=== PATIENT | female | born 2000 | race Caucasian/White ===

== ENCOUNTER 2021-07-09 21:48 | Emergency (ER) | payer SELFPAY ==
[2021-07-09 22:56] LABS: Urine Blood Negative (Negative); Urine Glucose Negative (Negative); Urine Protein Negative (Negative); Urine Specific Gravity 1.015 (1.005-1.030)
[2021-07-09 23:06] LABS: Urine Specific Gravity/Preg 1.015 (1.005-1.030)
[2021-07-09] MEDS ORDERED: ONDANSETRON 4 MG/2 ML VIAL ONE (23:11)
[2021-07-09] MEDS ORDERED: NA CHLORIDE 0.9% 1,000 ML ONE (23:12)
[2021-07-09 23:14] LABS: Absolute Lymphocytes (CBC) 2.3 K/uL (0.7-4.9); Basophils % 0.2 % (0-1.3); Hematocrit 41.9 % (36.0-45.0); MPV 8.5 fL (7.6-11.3); RBC Red Blood Cell Count 4.86 M/uL (3.86-4.86)
[2021-07-09 23:19] LABS: Urine Bacteria 20-50 /HPF (<20); Urine RBC <5 /HPF (NONE SEEN)
[2021-07-09 23:27] LABS: Albumin 4.4 g/dL (3.4-5.0); Bilirubin Direct 0.1 mg/dL (0-0.2); Bilirubin Total 0.4 mg/dL (0.2-1.0); Potassium 3.1 mmol/L (3.5-5.1); Protein, Total 8.2 g/dL (6.4-8.2)
--- NOTE | 2021-07-10 01:05 | ER ---
Nurse's Notes [facility] Name: Hung Aguiar Age: 21 yrs Sex: Female : 2000 Arrival Date: 07/09/2021 Time: 22:16 Bed 4 Private MD: Diagnosis: Abdominal pain, unspecified;Vomiting, unspecified Presentation: 07/09 22:21 Chief complaint: Patient states: epigastric pain, vomiting, chills, dizziness since sj1 this morning. Coronavirus screen: Vaccine status: Patient reports being unvaccinated. Ebola Screen: Patient negative for fever greater than or equal to 101.5 degrees Fahrenheit, and additional compatible Ebola Virus Disease symptoms Patient denies exposure to infectious person. Patient denies travel to an Ebola-affected area in the 21 days before illness onset. No symptoms or risks identified at this time. Initial Sepsis Screen: Does the patient meet any 2 criteria? No. Patient's initial sepsis screen is negative. Does the patient have a suspected source of infection? No. Patient's initial sepsis screen is negative. Risk Assessment: Do you want to hurt yourself or someone else? Patient reports no desire to harm self or others. Onset of symptoms was July 09, 2021. 22:21 Method Of Arrival: Ambulatory [facility] 22:21 Acuity: NANCY 3 [facility] Triage Assessment: 22:27 General: Appears in no apparent distress. Pain: Complains of pain in abdomen. EENT: No 1 signs and/or symptoms were reported regarding the EENT system. Neuro: Reports dizziness. Cardiovascular: No deficits noted. Respiratory: No deficits noted. GI: Reports upper abdominal pain, vomiting. : No signs and/or symptoms were reported regarding the genitourinary system. Derm: No deficits noted. Musculoskeletal: No deficits noted. 22:29 General: Behavior is calm, cooperative, appropriate for age. 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 - Social history:: Smoking status: Patient denies any tobacco usage or history of. Patient/guardian denies using alcohol, street drugs. - Family history:: not pertinent. - Hospitalizations: : No recent hospitalization is reported. Screenin:28 Abuse screen: Denies threats or abuse. Denies injuries from another. Nutritional sj1 screening: No deficits noted. Tuberculosis screening: No symptoms or risk factors identified. Fall Risk None identified. Assessment: 22:57 GI: Abdomen is non-distended. df1 Vital Signs: 22:21 BP 125 / 88 LA Sitting (auto/reg); Pulse 78; Resp 16 S; Temp 97.8(O); Pulse Ox 100% on sj1 R/A; Weight 43.09 kg (R); Height 5 ft. 2 in. (157.48 cm); Pain 3/10; 07/10 00:08 BP 125 / 84; Pulse 68; Resp 18; Pulse Ox 100% on R/A; df1 07/09 22:21 Body Mass Index 17.38 (43.09 kg, 157.48 cm) 1 ED Course: 07/09 22:16 Patient arrived in ED. cf2 22:26 Triage completed. sj1 22:27 Arm band placed on right wrist. sj1 22:28 Patient has correct armband on for positive identification. sj1 22:29 Aftab Talavera MD is Attending Physician. rn 22:42 Leatha Morrell is Primary Nurse. df1 22:55 Basic Metabolic Panel Sent. df1 22:55 Urine Microscopic Only Sent. df1 22:55 Flu Sent. df1 22:55 CT Abd/Pelvis - IV Contrast Only Sent. df1 22:56 Basic Metabolic Panel Sent. df1 22:56 CBC with Diff Sent. df1 22:56 Hepatic Function Sent. df1 22:56 Lipase Sent. df1 22:56 Inserted saline lock: 20 gauge in left antecubital area, using aseptic technique. df1 07/10 00:00 CT Abd/Pelvis - IV Contrast Only In Process Unspecified. EDMS 01:15 No provider procedures requiring assistance completed. IV discontinued, intact. df1 Administered Medications: 07/09 22:56 Drug: Zofran (Ondansetron) 4 mg Route: IVP; Site: left antecubital; df1 07/10 00:23 Follow up: Response: No adverse reaction; Nausea is decreased df1 07/09 22:56 Drug: NS 0.9% 1000 ml Route: IV; Rate: 1000 ml; Site: left antecubital; df1 07/10 00:23 Follow up: IV Status: Completed infusion; IV Intake: 1000ml df1 Intake: 00:23 IV: 1000ml; Total: 1000ml. df1 Outcome: 01:04 Discharge ordered by . rn 01:15 Discharged to home ambulatory. df1 01:15 Condition: good 01:15 Discharge instructions given to patient, Instructed on discharge instructions, follow up and referral plans. Demonstrated understanding of instructions, follow-up care, medications, Prescriptions given X 1. 01:47 Patient left the ED. em Signatures: Dispatcher [employer] Gregory Saleem RN RN em Aftab Talavera MD MD rn Frazier, [place] 2 Leatha Morrell df1 Akilah Oro RN RN sj1 Corrections: (The following items were deleted from the chart) 07/09 23:03 22:55 CORONAVIRUS+MR.LAB.BRZ drawn and sent. df1 EDMS
--- NOTE | 2021-07-10 01:05 | EDPHYS ---
Physician Documentation [facility] Name: Hung Aguiar Age: 21 yrs Sex: Female : 2000 Arrival Date: 07/09/2021 Time: 22:16 Bed 4 Private MD: ED Physician Aftab Talavera HPI: 07/09 22:41 This 21 yrs old Female presents to ER via Ambulatory with complaints of rn Morning and abdominal pain. 22:41 The patient presents to the emergency department with nausea, vomiting, abdominal pain. rn Onset: The symptoms/episode began/occurred today. Possible causes: unknown. The symptoms are aggravated by nothing. The symptoms are alleviated by nothing. Associated signs and symptoms: Pertinent positives: abdominal pain, nausea, vomiting, Pertinent negatives: diarrhea, fever, GI bleeding. Severity of symptoms: At their worst the symptoms were mild in the emergency department the symptoms are unchanged. The patient has not experienced similar symptoms in the past. The patient has not recently seen a physician. Mother and patient report sudden onset of mid abdominal pain associated with 2 episodes of vomiting, nonbloody. No fever and no diarrhea. No known sick contacts. No chronic abdominal pain. No abdominal surgeries.. 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 - Social history:: Smoking status: Patient denies any tobacco usage or history of. Patient/guardian denies using alcohol, street drugs. - Family history:: not pertinent. - Hospitalizations: : No recent hospitalization is reported. ROS: 22:41 Constitutional: Negative for fever, chills, and weight loss, Eyes: Negative for injury, rn pain, redness, and discharge, Neck: Negative for injury, pain, and swelling, Cardiovascular: Negative for chest pain, palpitations, and edema, Respiratory: Negative for shortness of breath, cough, wheezing, and pleuritic chest pain, Abdomen/GI: Positive for abdominal pain/nausea/vomiting Back: Negative for injury and pain, : Negative for injury, bleeding, discharge, and swelling, MS/Extremity: Negative for injury and deformity, Skin: Negative for injury, rash, and discoloration, Neuro: Negative for headache, weakness, numbness, tingling, and seizure. Exam: 22:41 Constitutional: This is a well developed, well nourished patient who is awake, alert, rn and in no acute distress. Ambulatory to room in bathroom without assistance or distress Head/Face: Normocephalic, atraumatic. Eyes: Periorbital areas with no swelling, redness, or edema. ENT: Moist mucous membranes, no stridor Neck: Trachea midline, no thyromegaly or masses palpated, and no cervical lymphadenopathy. Supple, full range of motion without nuchal rigidity, or vertebral point tenderness. No Meningismus. Cardiovascular: Regular rate and rhythm. No pulse deficits. Respiratory: No increased work of breathing, no retractions or nasal flaring. Abdomen/GI: Soft, mild periumbilical tenderness without rebound or peritoneal signs. Nondistended. Skin: Warm, dry with normal turgor. Normal color with no rashes, no lesions, and no evidence of cellulitis. MS/ Extremity: Pulses equal, no cyanosis. Neurovascular intact. Full, normal range of motion. Equal circumference. Neuro: Awake and alert, GCS 15, oriented to person, place, time, and situation. Cranial nerves II-XII grossly intact. Motor strength 5/5 in all extremities. Sensory grossly intact. Cerebellar exam normal. Normal gait. Vital Signs: 22:21 BP 125 / 88 LA Sitting (auto/reg); Pulse 78; Resp 16 S; Temp 97.8(O); Pulse Ox 100% on sj1 R/A; Weight 43.09 kg (R); Height 5 ft. 2 in. (157.48 cm); Pain 3/; 07/10 00:08 BP 125 / 84; Pulse 68; Resp 18; Pulse Ox 100% on R/A; df1 07/09 22:21 Body Mass Index 17.38 (43.09 kg, 157.48 cm) [facility] MDM: 07/09 22:29 Patient medically screened. rn 07/10 01:01 Differential diagnosis: Nonspecific abd pain, gastritis, cholecystitis, pancreatitis, rn appendicitis, diverticulitis, viral gastroenteritis, gastroenteritis. Data reviewed: vital signs, nurses notes, lab test result(s), radiologic studies, CT scan, and as a result, I will discharge patient. Counseling: I had a detailed discussion with the patient and/or guardian regarding: the historical points, exam findings, and any diagnostic results supporting the discharge/admit diagnosis, lab results, radiology results, the need for outpatient follow up, to return to the emergency department if symptoms worsen or persist or if there are any questions or concerns that arise at home. Response to treatment: the patient's symptoms have markedly improved after treatment, the patient's condition has returned to base line, the patient is now symptom free, and as a result, I will discharge patient. Special discussion: Based on the patient's Hx, exam, and Dx evaluation, there is no indication for emergent surgery or inpatient Tx. It is understood by the patient/guardian that if the Sx's persist or worsen they need to return immediately for re-evaluation. I discussed with the patient/guardian in detail that at this point there is no indication for admission to the hospital. It is understood, however, that if the symptoms persist or worsen the patient needs to return immediately for re-evaluation. ED course: Patient feels much better, back to baseline, no longer vomiting, no abdominal pain. CT without any acute findings. There was some nonspecific periportal edema and discussed with patient's mother the need to observe her at home and return if anything worsens for repeat CAT scan. Her symptoms just began today and could progress at which point I would recommend returning for reevaluation. Will DC home with Zofran as needed. 07/09 22: Order name: Basic Metabolic Panel rn 07/09 22: Order name: CBC with Diff; Complete Time: 00: rn 07/09 22:41 Order name: Hepatic Function; Complete Time: 00: rn 07/09 22:41 Order name: Lipase; Complete Time: 00: rn 07/09 22:41 Order name: Flu; Complete Time: 00:23 rn 07/09 22:41 Order name: CT Abd/Pelvis - IV Contrast Only rn 07/09 22:41 Order name: Urine Microscopic Only; Complete Time: 00: rn 07/09 22:41 Order name: Basic Metabolic Panel; Complete Time: 00:23 EDMS 07/09 22:54 Order name: Urine Dipstick-Ancillary; Complete Time: 00:23 EDMS 07/09 23:03 Order name: SARS-COV-2 RT PCR; Complete Time: 00:23 EDMS 07/09 23:03 Order name: Urine --Ancillary (enter results); Complete Time: 00:23 tt3 07/09 23:19 Order name: Urine Culture EDRI 07/09 22:41 Order name: IV Saline Lock; Complete Time: 22:56 rn 07/09 22:41 Order name: Labs collected and sent; Complete Time: 22:56 rn 07/09 22:41 Order name: Urine Dipstick-Ancillary (obtain specimen); Complete Time: 22:55 rn 07/09 22:41 Order name: Urine Test (obtain specimen); Complete Time: 22:55 rn Administered Medications: 07/09 22:56 Drug: Zofran (Ondansetron) 4 mg Route: IVP; Site: left antecubital; df1 07/10 00:23 Follow up: Response: No adverse reaction; Nausea is decreased df1 07/09 22:56 Drug: NS 0.9% 1000 ml Route: IV; Rate: 1000 ml; Site: left antecubital; df1 07/10 00:23 Follow up: IV Status: Completed infusion; IV Intake: 1000ml df1 Disposition Summary: 07/10/21 01:04 Discharge Ordered Location: Home rn Problem: new rn Symptoms: have improved rn Condition: Stable rn Diagnosis - Abdominal pain, unspecified rn - Vomiting, unspecified rn Followup: rn - With: Private Physician - When: As needed - Reason: Recheck today's complaints, Re-evaluation by your physician Discharge Instructions: - Discharge Summary Sheet rn - Abdominal Pain, Adult rn - Nausea and Vomiting, Adult rn Forms: - Medication Reconciliation Form rn - Thank You Letter rn - Antibiotic corn popper - Prescription Opioid Use rn Prescriptions: - ondansetron 4 mg Oral tablet,disintegrating - place 1 tablet by TRANSLINGUAL route every 8 hours As needed; 20 tablet; rn Refills: 0, Product Selection Permitted Signatures: Dispatcher [employer] EDMS Aftab Talavera MD MD rn Furlich, Dawn df1 Akilah Oro RN RN sj1 Corrections: (The following items were deleted from the chart) 07/09 23:03 22:41 CORONAVIRUS+BRZ ordered. EDMS EDMS
[2021-07-10 02:20] VITALS: BP 125/84; O2SAT 100
[2021-07-10 02:21] VITALS: TEMP 97.8
--- NOTE | 2021-07-10 12:57 | RAD REPORT ---
EXAM DESCRIPTION: CT - Abdomen Pelvis W Contrast - 07/10/2021 6:15 am CLINICAL HISTORY: 21 years Female ABD PAIN TECHNIQUE: Axial CT imaging of the abdomen and pelvis was performed following the administration of intravenous contrast.. Oral contrast was not administered. Sagittal and coronal reconstructed image s were then performed. The CT study is performed according to ALARA (as low as reasonably achievabl e) or ALARA/IMAGE GENTLY, with automatic adjustment of mA and/or kV according to patient size. Performed on: 07/09/2021 at 11:57 PM. Comparison: No prior studies were available for comparison. FINDINGS: Lung bases: The lung bases are clear. Liver: The liver is normal in size and configuration. No focal hepatic abnormalities are identified. Liver attenuation is within normal limits. The hepatic and portal veins are patent. There is diffuse periportal edema which is nonspecific but can be seen with hypervolemia, passive hepatic congestion, hepatitis or other less likely etiologies. Spleen: The spleen is normal is size, configuration and attenuation. Gallbladder and bile duct: The gallbladder is well distended and unremarkable. There is no biliary ductal dilatation. Pancreas: The pancreas is grossly normal in size and configuration. Adrenal Glands: The adrenal glands are normal in size and configuration. Kidneys: The kidneys are normal in size and configuration. There is no evidence of hydronephrosis. Th ere is no evidence of nephrolithiasis. No definite solid or cystic renal mass lesions are identified. There is a circumaortic left renal vein. Stomach: The stomach is grossly normal. There is no definite hiatal hernia. Bowel: The bowel gas pattern is non specific and non obstructive. Appendix: There is no definite CT evidence to suggest acute appendicitis. Free air: There is no evidence of free air. Free fluid: There is no evidence of free fluid. Vasculature: The aorta is normal in caliber and contour. The inferior vena cava is grossly unremarkab le. Lymphadenopathy: No pathologic lymphadenopathy is identified. Bladder: The bladder is well distended and smooth in contour. Reproductive: The uterus is grossly within normal limits. Bones: No acute osseous abnormalities are identified. There appear to be chronic changes of the hip j oints with bilateral acetabular dysplasia and femoral head flattening. Soft tissues: No acute soft tissue abnormalities are identified. IMPRESSION: 1. There is diffuse periportal edema which is nonspecific but can be seen with hypervo lemia, passive hepatic congestion, hepatitis or other less likely etiologies. 2. Chronic changes of the hip joints with bilateral acetabular dysplasia and femoral head flattenin g. 3. Otherwise, no evidence of acute intra-abdominal or intrapelvic pathology. Electronically signed by: Trini Velázquez DO 07/10/2021 12:29 AM CDT Due to temporary technical issues with the PACS/Fluency reporting system, reports are being signed by the in house radiologist without review as a courtesy to ensure prompt reporting. The interpreting r adiologist is fully responsible for the content of the report.
== END 2021-07-10 01:47 | disposition home or self-care (01) ==
LOC: ER 21:48
DX: R11.10 Vomiting, unspecified (principal); F31.9 Bipolar disorder, unspecified; Z20.822 Contact with and (suspected) exposure to COVID-19
CPT/HCPCS: 36415; 74177; 80048; 80076; 81003; 81015; 81025; 83690; 85025; 87086; 87088; 87804; 96361; 96374; 99284; J2405; J7030; Q9967; U0003

== ENCOUNTER 2021-09-23 22:40 | Emergency (ER) | payer SELFPAY ==
--- OUTSIDE RECORDS SUMMARY | 2021-09-23 22:44 | XMS REPORT | Continuity of Care Document ---
:2000 Author Organization [facility] t Address [address] [place] [address] Care Team Providers Name Role Phone Mehnaz Malik Primary Care Physician [phone] Chiki MACKAY Attending Clinician Unavailable MISAEL Attending Clinician Unavailable Only, Db Test Attending Clinician Unavailable Misael WHYTE Attending Clinician Doctor Unassigned, Name Attending Clinician Unavailable CLAUDIA_Marlo Attending Clinician Unavailable Claudia Attending Clinician [phone] See WHYTE S Attending Clinician Aracelis Sakshi MICHELLE Attending Clinician Lab, Fam Pob I Attending Clinician Unavailable Avila Galvan Attending Clinician Avila ESTRADA Attending Clinician Unavailable Geovany ARMENTA Attending Clinician GEOVANY Attending Clinician Unavailable YAIMA Admitting Clinician Unavailable Payers Payer Name Policy Type Policy Number Effective Date Expiration Date S ource Advance Directives Directive Decision Effective Termination Comments Source Date Date Healthcare Agents on N/A [facility] FileNameRelationshipHealthcare [facility] Agent Medical [facility] [phone] (Mobile) Problems Condition Condition Condition Status Onset Resolution Last Treating Co mments Source Name Details Category Date Date Treatment Clinician Date Contracept Contracept Disease Active U nivers ion ion 3-28 [place] Irregular Irregular Disease Active Uni vers menstrual menstrual 3-28 ity of cycle cycle 00:00: [place] 00 [facility] Allergies, Adverse Reactions, Alerts Allergy Allergy Status Severity Reaction(s) Onset Inactive Treating Comm ents Source Name Type Date Date Clinician NO KNOWN Drug Active Univers ALLERGIE Class ity of S [facility] Social History Social Habit Start Date Stop Date Quantity Comments Source Exposure to Not sure [facility] SARS-CoV-2 [place] [facility] (event) Branch Alcohol intake 2020-12-27 2020-12-27 Current [facility] 00:00:00 00:00:00 non-drinker of [facility] alcohol [place] (finding) Tobacco use and 2017-12-21 2017-12-21 Never used Universit y of exposure 00:00:00 00:00:00 [facility] Sex Assigned At [birth year] Universit y of 00:00:00 00:00:00 [facility] Smoking Status Start Date Stop Date Source Never smoker [facility] Medications Ordered Filled Start Stop Current Ordering Indication Dosage Frequency Signature Comments Components Source Medication Medication Date Date Medication? Clinician (SIG) Name Name ketorolac 15mg 15 mg, Unive rs (TORADOL) 10-27 Slow IV ity of injection 04:45: 03:51 [place], [place] 15 mg 00 :00 ONCE, 1 Medical dose, [place] Branch 10/26/20 at 2245, WALLY
Fa culty member approving Restricted medication : [place] RABAGO ibuprofen Yes [id number] 400mg Take 1 Univers 400 mg 1-31 tablet by ity of tablet 00:00: mouth [place] 00 every 6 Medical (six) Branch hours as needed for Pain (scale 1-3). ibuprofen Yes [id number] 400mg Take 1 Univers 400 mg 1-31 tablet by ity of tablet 00:00: mouth [place] 00 every 6 Medical (six) Branch hours as needed for Pain (scale 1-3). ibuprofen Yes [id number] 400mg Take 1 Univers 400 mg 1-31 tablet by ity of tablet 00:00: mouth [place] 00 every 6 Medical (six) Branch hours as needed for Pain (scale 1-3). ibuprofen Yes [id number] 400mg Take 1 Univers 400 mg 1-31 tablet by ity of tablet 00:00: mouth [place] 00 every 6 Medical (six) Branch hours as needed for Pain (scale 1-3). ibuprofen 2020-0 Yes [id number] 400mg Take 1 Univers 400 mg 1-31 tablet by ity of tablet 00:00: mouth [place] 00 every 6 Medical (six) Branch hours as needed for Pain (scale 1-3). ibuprofen 0 Yes [id number] 400mg Take 1 Univers 400 mg 1-31 tablet by ity of tablet 00:00: mouth [place] 00 every 6 Medical (six) Branch hours as needed for Pain (scale 1-3). ibuprofen 0 Yes [id number] 400mg Take 1 Univers 400 mg 1-31 tablet by ity of tablet 00:00: mouth [place] 00 every 6 Medical (six) Branch hours as needed for Pain (scale 1-3). ibuprofen 0 Yes [id number] 400mg Take 1 Univers 400 mg 1-31 tablet by ity of tablet 00:00: mouth [place] 00 every 6 Medical (six) Branch hours as needed for Pain (scale 1-3). levonorgest Yes [id number] 1{tbl} Take 1 Univers rel-ethinyl 6-28 tablet by ity of estradiol 00:00: mouth [place] (SRONYX) 00 daily. Medical 0.1-20 Branch mg-mcg per tablet levonorgest Yes [id number] 1{tbl} Take 1 Univers rel-ethinyl 6-28 tablet by ity of estradiol 00:00: mouth [place] (SRONYX) 00 daily. Medical 0.1-20 Branch mg-mcg per tablet levonorgest Yes [id number] 1{tbl} Take 1 Univers rel-ethinyl 6-28 tablet by ity of estradiol 00:00: mouth [place] (SRONYX) 00 daily. Medical 0.1-20 Branch mg-mcg per tablet levonorgest 2017- Yes [id number] 1{tbl} Take 1 Univers rel-ethinyl 6-28 tablet by ity of estradiol 00:00: mouth [place] (SRONYX) 00 daily. Medical 0.1-20 Branch mg-mcg per tablet levonorgest 2017- Yes [id number] 1{tbl} Take 1 Univers rel-ethinyl 6-28 tablet by ity of estradiol 00:00: mouth [place] (SRONYX) 00 daily. Medical 0.1-20 Branch mg-mcg per tablet levonorgest 2018-0 Yes [id number] 1{tbl} Take 1 Univers rel-ethinyl 6-28 tablet by ity of estradiol 00:00: mouth [place] (SRONYX) 00 daily. Medical 0.1-20 Branch mg-mcg per tablet levonorgest 2018-0 Yes [id number] 1{tbl} Take 1 Univers rel-ethinyl 6-28 tablet by ity of estradiol 00:00: mouth [place] (SRONYX) 00 daily. Medical 0.1-20 Branch mg-mcg per tablet levonorgest 2018-0 Yes [id number] 1{tbl} Take 1 Univers rel-ethinyl 6-28 tablet by ity of estradiol 00:00: mouth [place] (SRONYX) 00 daily. Medical 0.1-20 Branch mg-mcg per tablet levonorgest 2018-0 Yes [id number] 1{tbl} Take 1 Univers rel-ethinyl 6-28 tablet by ity of estradiol 00:00: mouth [place] (SRONYX) 00 daily. Medical 0.1-20 Branch mg-mcg per tablet levonorgest 2018-0 Yes [id number] 1{tbl} Take 1 Univers rel-ethinyl 6-28 tablet by ity of estradiol 00:00: mouth [place] (SRONYX) 00 daily. Medical 0.1-20 Branch mg-mcg per tablet levonorgest 2018-0 Yes [id number] 1{tbl} Take 1 Univers rel-ethinyl 6-28 tablet by ity of estradiol 00:00: mouth [place] (SRONYX) 00 daily. Medical 0.1-20 Branch mg-mcg per tablet Immunizations Ordered Filled Immunization Date Status Comments [facility] e Immunization Name Name HPV 2010-06-23 Completed University of 00:00:00 [facility] 2010-06-23 Completed University of 00:00:00 [facility] HPV 2010-06-23 Completed University of 00:00:00 [facility] HPV 2010-06-23 Completed University of 00:00:00 [facility] HPV 2010-06-23 Completed University of 00:00:00 [facility] HPV 2010-06-23 Completed University of 00:00:00 [place] [facility] HPV 2010-06-23 Completed University of 00:00:00 [place] [facility] HPV 2010-06-23 Completed University of 00:00:00 [place] [facility] HPV 2010-06-23 Completed University of 00:00:00 [place] [facility] HPV 2010-06-23 Completed University of 00:00:00 [place] [facility] HPV 2010-06-23 Completed University of 00:00:00 [place] [facility] HPV 2009-12-21 Completed University of 00:00:00 [place] [facility] HPV 2009-12-21 Completed University of 00:00:00 [place] [facility] HPV 2009-12-21 Completed University of 00:00:00 [place] [facility] HPV 2009-12-21 Completed University of 00:00:00 [place] [facility] HPV 2009-12-21 Completed University of 00:00:00 [place] [facility] HPV 2009-12-21 Completed University of 00:00:00 [place] [facility] HPV 2009-12-21 Completed University of 00:00:00 [place] [facility] HPV 2009-12-21 Completed University of 00:00:00 [place] [facility] HPV 2009-12-21 Completed University of 00:00:00 [place] [facility] HPV 2009-12-21 Completed University of 00:00:00 [place] [facility] HPV 2009-12-21 Completed University of 00:00:00 [facility] TDAP (ADACEL) 2008-12-21 Completed University of VACCINE 00:00:00 [facility] TDAP (ADACEL) 2008-12-21 Completed University of VACCINE 00:00:00 [facility] TDAP (ADACEL) 2008-12-21 Completed University of VACCINE 00:00:00 [facility] TDAP (ADACEL) 2008-12-21 Completed University of VACCINE 00:00:00 [facility] TDAP (ADACEL) 2008-12-21 Completed University of VACCINE 00:00:00 [place] [facility] TDAP (ADACEL) 2008-12-21 Completed University of VACCINE 00:00:00 [place] [facility] TDAP (ADACEL) 2008-12-21 Completed University of VACCINE 00:00:00 [facility] TDAP (ADACEL) 2008-12-21 Completed University of VACCINE 00:00:00 [place] [facility] TDAP (ADACEL) 2008-12-21 Completed University of VACCINE 00:00:00 [facility] TDAP (ADACEL) 2008-12-21 Completed University of VACCINE 00:00:00 [facility] TDAP (ADACEL) 2008-12-21 Completed University of VACCINE 00:00:00 [facility] Vital Signs Vital Name Observation Time Observation Value Comments Source Systolic blood 2020-12-28 03:00:00 112 mm[Hg] Univer sity of pressure [facility] Diastolic blood 2020-12-28 03:00:00 78 mm[Hg] Unive rsity of pressure [facility] Heart rate 2020-12-28 03:00:00 60 /min Universi ty of [facility] Respiratory rate 2020-12-28 03:00:00 20 /min Univ ersity of [facility] Oxygen saturation in 2020-12-28 03:00:00 100 /min University of Arterial blood by [facility] Pulse oximetry Branch Body temperature 2020-12-28 01:30:00 36.83 Aurea Univ ersity of [facility] Body height 2020-12-28 01:30:00 152.4 cm Universi ty of [place] [facility] [place] Body weight 2020-12-28 01:30:00 45.36 kg Universi ty of [facility] BMI 2020-12-28 01:30:00 19.53 kg/m2 Universi ty of [facility] Heart rate 2020-10-27 05:30:00 69 /min Universi ty of [facility] Respiratory rate 2020-10-27 05:30:00 20 /min Univ ersity of [facility] Oxygen saturation in 2020-10-27 05:30:00 94 /min University of Arterial blood by [facility] Pulse oximetry Branch Systolic blood 2020-10-27 05:00:00 102 mm[Hg] Univer sity of pressure [facility] Diastolic blood 2020-10-27 05:00:00 61 mm[Hg] Unive rsity of pressure [facility] Body temperature 2020-10-27 03:12:00 36.89 Aurea Univ ersity of [facility] Body height 2020-10-27 03:07:00 152.4 cm Universi ty of [facility] Body weight 2020-10-27 03:07:00 46.267 kg Universi ty of [facility] BMI 2020-10-27 03:07:00 19.92 kg/m2 Universi ty of [facility] Procedures Procedure Date / Time Performed Performing Clinician Mayito e ASSIGNMENT OF BENEFITS 2021-06-08 15:27:40 Doctor Unassigned, No [facility] Name [facility] POCT TEST 2020-12-28 02:06:00 Edith Cui [facility] COMP. METABOLIC PANEL 2020-12-28 02:03:00 Edith Cui [facility] ([id number]) Medical Branch CBC WITH DIFF 2020-12-28 02:03:00 Edith Cui [facility] URINALYSIS 2020-12-28 02:03:00 Edith Cui [facility] ADC / [facility]CC - DRUG 2020-12-28 02:03:00 Edith Cui [facility] SCREEN TRIAGE [facility] COVID-19 (ID NOW RAPID 2020-12-28 02:03:00 Edith Cui [facility] TESTING) Medical Branch CONSENT/REFUSAL FOR 2020-12-28 01:22:33 Doctor Unassigned, No Un [facility] DIAGNOSIS AND Name [facility] TREATMENT XR CHEST 1 VW 2020-10-27 05:21:52 Odessa Rabago [facility] D-DIMER 2020-10-27 03:51:00 Odessa Rabago [facility] LIPASE 2020-10-27 03:29:00 Odessa Rabago [facility] MAGNESIUM 2020-10-27 03:29:00 Odessa Rabago [facility] COMP. METABOLIC PANEL 2020-10-27 03:29:00 Odessa Rabago [facility] ([id number]) Medical Branch CBC WITH DIFF 2020-10-27 03:29:00 Odessa Rabago [facility] URINALYSIS 2020-10-27 03:29:00 Odessa Rabago Sakshi [facility] POCT TEST 2020-10-27 03:29:00 Odessa Rabago [facility] NOTICE OF PRIVACY 2020-10-27 02:57:21 Doctor Unassigned, No Univ ersity [facility] PRACTICES Name [facility] CONSENT/REFUSAL FOR 2020-10-27 02:57:00 [facility] Name [facility] TREATMENT Encounters Start End Encounter Admission Attending Care Care Encounter Source Date/Time Date/Time Type Type Clinicians Facility Department ID 2021-07-[address] [facility] [id number] Univers 10:32:09 ity of [facility] 2021-07-[address] [facility] [id number] Univers 20:51:15 ity of [facility] 2021-06-10 2021-06-10 Telephone JULIUS Monet [id number] Univers 00:00:00 00:00:00 Sybil SAUER [id number] it y of [facility] [id number] [place] as [id number] [address] 2021-06-08 2021-06-[address] [facility] [id number] Univers 13:20:00 13:20:00 [id number] ity of [facility] 2021-06-08 2021-06-[address] [facility] [id number] Univers 13:20:00 13:20:00 YAZAN ity [facility] 2021-06-08 2021-06-08 Laboratory Only, Ang Db Test [facility] 1.2.8 40.114 [id number] Univers 10:28:04 10:38:04 Only Misael Yazan [facility] [id number] ity of [place] [id number] [place] as Pete?Blea [id number] [address] Medical Office Building 2021-06-08 2021-06-08 Orders Doctor MADRID [id number] Univers 00:00:00 00:00:00 Only UnassCAMACHO sanders [id number] ity of [place] [facility] 4.2.7.2.[id number] [facility] 009 Branch 2021-01-22 2021-01-22 Outpatient WATERS_S [facility] [id number] Francis 05:21:00 05:21:00 0429 [facility] 2021-01-22 2021-01-22 Outpatient Claudia, [facility] [id number] 00:00:00 00:00:00 Corina [id number] 2020-12-27 2020-12-27 Emergency See, [facility] [id number] Univers 20:32:00 22:16:00 Edith Tovar [id number] ity of [place] 4.2.7.2.686 [facility] [id number] [address] 2020-12-27 2020-12-27 Orders Doctor JULIUS 1.2.840.114 [id number] Univers 00:00:00 00:00:00 Only Unassigned, CAMACHO [id number] ity of [place] [facility] 4.2.7.2.686 Beka as [id number] [address] 2020-10-26 2020-10-26 Emergency Odessa Rabago [facility] 1.2.840.114 [id number] Univers 21:08:00 23:59:00 Sakshi Tovar 350.1.13.10 i ty of [place] 4.2.7.2.686 [facility] [id number] [address] 2020-10-26 2020-10-26 Orders Doctor JULIUS 1.2.840.114 [id number] Univers 00:00:00 00:00:00 Only Unassigned, CAMACHO [id number] ity of [place] [facility] [id number] [place] as [id number] [address] 2020-09-24 2020-09-24 Laboratory Lab, Adc Fam Pob I [facility] 1.2. 840.114 [id number] Univers 12:47:55 13:07:55 Only Moon Estrada [id number] ity of [place] 4.2.7.2.686 [place] as Professio [phone] [facility] Branch Office Building One 2020-09-24 2020-09-[address] [facility] [id number] Univers 13:00:00 13:00:00 [facility] 2020-09-24 2020-09-[address] [facility] [id number] Univers 13:00:00 13:00:[address] [facility] 2020-09-15 2020-09-15 Laboratory Lab, Adc Fam Pob I [facility] 1.2. 840.114 [id number] Univers 16:37:34 16:57:34 Only Makayla Armenta [facility] [id number] [facility] [id number] [place] as Professio [id number] Sc dical [address] Office Building One 2020-09-15 2020-09-[address] [facility] [id number] Univers 16:40:00 16:40:[id number] [facility] 2020-09-15 2020-09-[address] [facility] [id number] Univers 16:40:00 16:40:[address] [facility] Results Test Description Test Time Test Comments Results Result Comments Source COVID-19 (ID NOW RAPID TESTING) 2020-12-28 02:34:46 Test Item Value Reference Range Interpretation Comme nts SARS-CoV-2 Rapid ID NOW (test code Not Detected Not Detected = 84828-3) EDOUARD (test code = EDOUARD) ID NOW COVID-19 Assay is an isothermal nucleic acid amplification test intended for the qualitative detection of nucleic acid from SARS-CoV-2 viral RNA in nasopharyngeal (INTERACTIVE PRODUCER) specimens. It is used under Emergency Use Authorization (EUA) by FDA. The limit of detection (LOD) of the assay is 125 Genome Equivalents/mL. A positive result is indicative of the presence of SARS-CoV-2 RNA. ?Clinical correlation with patient history and other diagnostic information is necessary to determine patient infection status. A negative (Not Detected) result does not preclude SARS-CoV-2 infection. In patients with clinical symptoms and other tests that are consistent with SARS-CoV-2 infection, negative results should be treated as presumptive negative and a new specimen should be tested with alternative PCR molecular test. Invalid: Please collect a new specimen for repeat patient testing if clinically indicated. Lab Interpretation (test code = Normal 45795-2) [facility] Test Item Value Reference Range Interpretation Comments APPEARANCE (test code = Clear Clear 6747734984) COLOR (test code = Yellow Yellow 0856024289) PH (test code = 4.8-8.0 3448900467) SP GRAVITY (test code = 1.003-1.030 1981717716) GLU U QUAL (test code = Normal Normal 4007386207) BLOOD (test code = Negative Negative 1434904883) KETONES (test code = Negative Negative 9494876713) PROTEIN (test code = Negative Negative 2887-8) UROBILIN (test code = Normal Normal 1172298287) BILIRUBIN (test code = Negative Negative 7179896890) NITRITE (test code = Negative Negative 0795993804) LEUK COOKIE (test code = Negative Negative 1656317140) RBC/HPF (test code = See_Comment [Autom ated message] 5768104875) The system [employer] generated this result transmitted ref erence range: 0 - 3 HP F. The reference range was not used to int erpret this result as normal/abnormal . WBC/HPF (test code = See_Comment [Autom ated message] 5371083801) The system [employer] generated this result transmitted ref erence range: 0 - 5 HP F. The reference range was not used to int erpret this result as normal/abnormal . BACTERIA (test code = Few Negative A 9252942994) MUCOUS (test code = Slight Negative LPF A 7500285507) SQ EPITH (test code = HPF 1649325923) Lab Interpretation (test Abnormal code = 17185-2) General acute hospital / [facility] - DRUG SCREEN [id number] 02:28:18 Test Item Value Reference Range Interpretation Comments BENZO U (test code = Negative Negative 0205654886) DERREK U (test code = Negative Negative 1353801977) AMPHET (test code = Negative Negative 1149991481) THC (test code = Negative Negative 7456860147) METHADONE (test code = Negative Negative 4366549419) Meth U (test code = Negative Negative 1352003883) OPIATES (test code = Negative Negative 3787391784) Cocaine Metabolite (test Negative Negative code = 7331840940) PROPOXY (test code = Negative Negative 5473402013) Tric U (test code = Negative Negative 1458446443) PCP (test code = Negative Negative 4261603987) OXYCOD (test code = Negative Negative 1889119209) EDOUARD (test code = EDOUARD) Urine Drug Cutoff Ranges Benzodiazepines: ? ? 150 ng/mLBarbiturates: ?200 ng/mLAmphetamine: ? 500 ng/mLCannabinoids: ?50 ?ng/mLMethadone: ? 200 ng/mLMethamphetamine: ? ? 500 ng/mL Opiates: ? 100 ng/mL or 2000 ng/mLCocaine: ? 150 ng/mLPropoxyphene: ?300 ng/mLTricyclics: ?300 ng/mLOxycodone: ? 100 ng/mLPCP: ? 25 ?ng/mL The results are to be used only for medical (i.e., treatment) purposes. Unconfirmed screening results must not be used for non-medical purposes (e.g., employment testing, legal testing). Lab Interpretation (test Normal code = 18546-0) [facility] (55191)2020-12-28 02:27:28 Test Item Value Reference Range Interpretation Comments NA (test code = 142 mmol/L 135-145 7925355307) K (test code = 4.8 mmol/L 3.5-5.0 8322102696) CL (test code = 106 mmol/L 98-108 7240090363) CO2 TOTAL (test code = 27 mmol/L 23-31 5589576611) AGAP (test code = 2-16 0103937895) BUN (test code = 10 mg/dL 7-23 4450980907) GLUCOSE (test code = 79 mg/dL 70-110 2410974682) CREATININE (test code = 0.76 mg/dL 0.50-1.04 4958458860) TOTAL BILI (test code = 0.8 mg/dL 0.1-1.9 4589512617) CALCIUM (test code = 9.0 mg/dL 8.6-10.6 9455039137) T PROTEIN (test code = 9.0 g/dL 6.3-8.2 H 0037490727) ALBUMIN (test code = 5.1 g/dL 3.5-5.0 H 3723021643) ALK PHOS (test code = 58 U/L 34-122 9955361417) ALTv (test code = 20 U/L 5-35 1742-6) AST(SGOT) (test code = 48 U/L 13-40 H 1738330023) eGFR (test code = mL/min/1.73m2 4579442435) EDOUARD (test code = EDOUARD) Association of Glomerular Filtration Rate (GFR) and Staging of Kidney Disease* + --+ --+ ------+| GFR (mL/min/1.73 m2) ?| With Kidney Damage ?| ?Without Kidney Damage+ --------+ --------+ +| ?>90 ?| ?Stage one ?| ? Normal ?+ ---+ ---+ -------+| ?60-89 ?| ?Stage two ?| ? Decreased GFR ? + --+ --+ ------+| ?30-59 ?| ?Stage three ?| ? Stage three ? + --+ --+ ------+| ?15-29 ?| ?Stage four ? | ? Stage four ?+ ---+ ---+ -------+| ?<15 (or dialysis) ? ?| ?Stage five ? | ? Stage five ?+ ---+ ---+ -------+ *Each stage assumes the associated GFR level has been in effect for at least three months. ?Stages 1 to 5, with or without kidney disease, indicate chronic kidney disease. Notes: Determination of stages one and two (with eGFR >59mL/min/1.73 m2) requires estimation of kidney damage for at least three months as defined by structural or functional abnormalities of the kidney, manifested by either:Pathological abnormalities or Markers of kidney damage (including abnormalities in the composition of the blood or urine or abnormalities in imaging tests). Lab Interpretation Abnormal (test code = 16066-6) General acute hospital WITH [id number] 02:13:05 Test Item Value Reference Range Interpretation Comments WBC (test code = See_Comment [Automated 6690-2) message] The sy stem which generated this result transmitted reference range : 4.30 - 11.10 10*3/?L. The reference range was not used to interpret this result as normal/abnormal . RBC (test code = See_Comment [Automated 789-8) message] The sy stem which generated this result transmitted reference range : 3.93 - 5.25 10*6/?L. The reference range was not used to interpret this result as normal/abnormal . HGB (test code = 14.2 g/dL 11.6-15.0 718-7) HCT (test code = 42.9 % 35.7-45.2 4544-3) MCV (test code = 87.7 fL 80.6-95.5 787-2) MCH (test code = 29.0 pg 25.9-32.8 785-6) MCHC (test code = 33.1 g/dL 31.6-35.1 786-4) RDW-SD (test code = 38.2 fL 39.0-49.9 L 85657-0) RDW-CV (test code = 11.9 % 12.0-15.5 L 788-0) PLT (test code = See_Comment [Automated 777-3) message] The sy stem which generated this result transmitted reference range : 166 - 358 10*3/ ?L. The reference r elizabeth was not used to interpret this result as normal/abnormal . MPV (test code = 10.5 fL 9.5-12.9 90018-9) NRBC/100 WBC (test See_Comment [Automat ed code = 5796402444) message] The system which generated this result transmitted reference range : 0.0 - 10.0 /100 WBCs. The refer ence range was not u sed to interpret th is result as normal/abnormal . NRBC x10^3 (test code <0.01 See_Comment [Auto mated = 4653609044) message] The s ystem which generated this result transmitted reference range : 10*3/?L. The reference range was not used to interpret this result as normal/abnormal . GRAN MAT (NEUT) % 60.4 % (test code = 770-8) IMM GRAN % (test code 0.30 % = 0037149025) LYMPH % (test code = 29.6 % 736-9) MONO % (test code = 7.7 % 5905-5) EOS % (test code = 1.7 % 713-8) BASO % (test code = 0.3 % 706-2) GRAN MAT x10^3(ANC) 4.22 10*3/uL 1.88-7.09 (test code = 4705535054) IMM GRAN x10^3 (test <0.03 0.00-0.06 code = 1721937161) LYMPH x10^3 (test code 2.07 10*3/uL 1.32-3.29 = 731-0) MONO x10^3 (test code 0.54 10*3/uL 0.33-0.92 = 742-7) EOS x10^3 (test code = 0.12 10*3/uL 0.03-0.39 711-2) BASO x10^3 (test code <0.03 0.01-0.07 = 704-7) Lab Interpretation Abnormal (test code = 00804-9) [id number]00 Test Item Value Reference Range Interpretation Comments POCT PREG (test code = 1605) negative On board controls acceptable with positive C Line (test code = 3574) POCT PREG LOT # (test code = 3575) [id number] POCT PREG TEST DATE (test 08/25/2022 code = 3576) Lab Interpretation (test code = Normal 67820-9) [id number]-[id number] 04:34:00 Test Item Value Reference Interpretation Comments Range D-DIMER (test code = <0.27 See_Comment [Autom ated 4023399567) message] The system which generated this result transmitted reference range : <0.41 ?g/mL (FEU). The reference range was not used to interpret this result as normal/abnormal . EDOUARD (test code = This test may be EDOUARD) used in conjunction with a clinical pretest probability (PTP) assessment model to exclude venous thromboembolism (VTE) in patients suspected of deep venous thrombosis (DVT) and pulmonary embolism (PE) A D-Dimer value less than 0.50 ?g/ml (FEU) has a negative predicative value of 96 to 100% (95% CI)and 97 to 100% (95% CI) as an aid in the diagnosis of deep vein thrombosis (DVT) and pulmonary embolism when there is low or moderate pretest probability of PE or DVT. D-Dimer values are expressed in initial fibrinogen equivalent units (FEU)" The assay results should be used with other information, including the clinical context, in forming a diagnosis. Lab Interpretation Normal (test code = 80915-3) [facility]. METABOLIC PANEL (72819)2020-10-27 03:58:00 Test Item Value Reference Range Interpretation Comments NA (test code = 141 mmol/L 135-145 3827297929) K (test code = 3.6 mmol/L 3.5-5 3134108891) CL (test code = 103 mmol/L 98-108 1033624758) CO2 TOTAL (test code = 27 mmol/L 23-31 8432668514) AGAP (test code = 2-16 0706199536) BUN (test code = 16 mg/dL 7-23 9165418858) GLUCOSE (test code = 81 mg/dL 70-110 4739133746) CREATININE (test code = 0.80 mg/dL 0.5-1.04 8854722423) TOTAL BILI (test code = 0.4 mg/dL 0.1-1.6 1008318863) CALCIUM (test code = 9.3 mg/dL 8.6-10.6 9916215571) T PROTEIN (test code = 8.3 g/dL 6.3-8.2 H 5024275326) ALBUMIN (test code = 4.8 g/dL 3.5-5 3483995295) ALK PHOS (test code = 70 U/L 34-122 4113664270) ALTv (test code = 13 U/L 5-35 1742-6) AST(SGOT) (test code = 29 U/L 13-40 2279248676) eGFR Calculation mL/min/1.73m2 (Non-) (test code = 0352377547) eGFR Calculation mL/min/1.73m2 () (test code = 7691452059) EDOUARD (test code = EDOUARD) Association of Glomerular Filtration Rate (GFR) and Staging of Kidney Disease* + --+ --+ ------+| GFR (mL/min/1.73 m2) ?| With Kidney Damage ?| ?Without Kidney Damage+ --------+ --------+ +| ?>90 ?| ?Stage one ?| ? Normal ?+ ---+ ---+ -------+| ?60-89 ?| ?Stage two ?| ? Decreased GFR ? + --+ --+ ------+| ?30-59 ?| ?Stage three ?| ? Stage three ? + --+ --+ ------+| ?15-29 ?| ?Stage four ? | ? Stage four ?+ ---+ ---+ -------+| ?<15 (or dialysis) ? ?| ?Stage five ? | ? Stage five ?+ ---+ ---+ -------+ *Each stage assumes the associated GFR level has been in effect for at least three months. ?Stages 1 to 5, with or without kidney disease, indicate chronic kidney disease. Notes: Determination of stages one and two (with eGFR >59mL/min/1.73 m2) requires estimation of kidney damage for at least three months as defined by structural or functional abnormalities of the kidney, manifested by either:Pathological abnormalities or Markers of kidney damage (including abnormalities in the composition of the blood or urine or abnormalities in imaging tests). Lab Interpretation Abnormal (test code = 36436-4) [facility] 03:54:00 Test Item Value Reference Range Interpretation Comments MAGNESIUM (test code = 8751876683) 1.7 mg/dL 1.7-2.4 Lab Interpretation (test code = Normal 48919-6) [facility]21[facility] 03:53:00 Test Item Value Reference Range Interpretation Comments LIPASE (test code = 2307588211) 189 U/L 0-220 Lab Interpretation (test code = Normal 79167-4) [facility]21[facility]01 03:47:00 Test Item Value Reference Range Interpretation Comments APPEARANCE (test code = Clear Clear 0105687886) COLOR (test code = Yellow Yellow 8485233427) PH (test code = 4.8-8.0 2439399516) SP GRAVITY (test code = 1.003-1.030 7504991950) GLU U QUAL (test code = Normal Normal 6697879448) BLOOD (test code = Negative Negative 2670404954) KETONES (test code = Negative Negative 4638529316) PROTEIN (test code = Negative Negative 2887-8) UROBILIN (test code = 2.0 mg/dL Normal A 4378779822) BILIRUBIN (test code = Negative Negative 1031376879) NITRITE (test code = Negative Negative 6409148506) LEUK COOKIE (test code = Negative Negative 5549723748) RBC/HPF (test code = See_Comment [Autom ated message] 6034834076) The system [employer] generated this result transmit unique reference range : 0 - 3 HPF. The refe rence range was not u sed to interpret th is result as normal/abnormal . WBC/HPF (test code = See_Comment [Autom ated message] 8847159603) The system [employer] generated this result transmit unique reference range : 0 - 5 HPF. The refe rence range was not u sed to interpret th is result as normal/abnormal . BACTERIA (test code = Few Negative A 1321426969) MUCOUS (test code = Slight Negative LPF A 7062030716) SQ EPITH (test code = HPF 0360328162) Lab Interpretation (test Abnormal code = 85488-2) [facility] WITH [id number] 03:41:00 Test Item Value Reference Range Interpretation Comments WBC (test code = See_Comment [Automated message] 6690-2) The system [employer] generated this result transmitted ref erence range: 4.30 - 1 1.10 10*3/?L. The re ference range was not u sed to interpret this result as normal/abnor mal. RBC (test code = See_Comment [Automated message] 789-8) The system [employer] generated this result transmitted ref erence range: 3.93 - 5 .25 10*6/?L. The re ference range was not u sed to interpret this result as normal/abnor mal. HGB (test code = 13.9 g/dL 11.6-15 718-7) HCT (test code = 41.9 % 35.7-45.2 4544-3) MCV (test code = 88.4 fL 80.6-95.5 787-2) MCH (test code = 29.3 pg 25.9-32.8 785-6) MCHC (test code = 33.2 g/dL 31.6-35.1 786-4) RDW-SD (test code 40.5 fL 39-49.9 = 69886-5) RDW-CV (test code 12.3 % 12-15.5 = 788-0) PLT (test code = See_Comment [Automated message] 777-3) The system whic h generated this result transmitted ref erence range: 166 - 35 8 10*3/?L. The re ference range was not u sed to interpret this result as normal/abnor mal. MPV (test code = 10.3 fL 9.5-12.9 77707-9) NRBC/100 WBC (test See_Comment [Automat ed message] code = 5999838721) The syste m which generated this result transmitted ref erence range: 0.0 - 10 .0 /100 WBCs. The refer ence range was not u sed to interpret this result as normal/abnor mal. NRBC x10^3 (test <0.01 See_Comment [Automated message] code = 6236786849) The syste m which generated this result transmitted ref erence range: 10*3/?L. The reference range was not used to interpr et this result as normal/abnormal . GRAN MAT (NEUT) % 62.3 % (test code = 770-8) IMM GRAN % (test 0.20 % code = 0892110752) LYMPH % (test code 29.7 % = 736-9) MONO % (test code 6.8 % = 5905-5) EOS % (test code = 0.8 % 713-8) BASO % (test code 0.2 % = 706-2) GRAN MAT 5.89 10*3/uL 1.88-7.09 x10^3(ANC) (test code = 3314042152) IMM GRAN x10^3 <0.03 0-0.06 (test code = 2353710602) LYMPH x10^3 (test 2.81 10*3/uL 1.32-3.29 code = 731-0) MONO x10^3 (test 0.64 10*3/uL 0.33-0.92 code = 742-7) EOS x10^3 (test 0.08 10*3/uL 0.03-0.39 code = 711-2) BASO x10^3 (test <0.03 0.01-0.07 code = 704-7) [facility] [id number] 03:29:00 Test Item Value Reference Range Interpretation Comments POCT PREG (test code = 1605) negative On board controls acceptable with present C Line (test code = 3574) POCT PREG LOT # (test code = 3575) [id number] POCT PREG TEST DATE (test 05/26/2022 code = 3576) Lab Interpretation (test code = Normal 07729-6) [facility]
[2021-09-23 22:59] LABS: Urine Blood 2+ (Negative); Urine Glucose 1+ (Negative); Urine Protein 3+ (Negative); Urine Specific Gravity 1.025 (1.005-1.030)
[2021-09-23 23:07] LABS: Urine Bacteria 20-50 /HPF (<20); Urine RBC >50 /HPF (NONE SEEN); Urine Yeast FEW (NONE SEEN)
--- NOTE | 2021-09-23 23:11 | EDPHYS ---
Physician Documentation [facility] [place], [place] Name: Hung Aguiar Age: 21 yrs Sex: Female : 2000 Arrival Date: 09/23/2021 Time: 22:46 Bed Waiting Private MD: ED Physician Sanjeev Agee HPI: 09/23 23:04 This 21 yrs old Female presents to ER via Ambulatory with complaints of Pain With kb Urination. 23:04 The patient presents with urinary symptoms, dysuria, hematuria. Onset: The kb symptoms/episode began/occurred today. Modifying factors: The symptoms are alleviated by nothing, the symptoms are aggravated by urinating. Associated signs and symptoms: Pertinent positives: dysuria, hematuria, Pertinent negatives: constipation, cramping, diarrhea, dyspareunia, fever, nausea, urinary frequency, vaginal bleeding, vaginal discharge, vomiting. Severity of symptoms: At their worst the symptoms were mild, in the emergency department the symptoms are unchanged. The patient has not experienced similar symptoms in the past. The patient has not recently seen a physician. Pt reports dysuria and hematuria that started today. 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 - Social history:: Smoking status: unknown. ROS: 23:04 Constitutional: Negative for fever, chills, and weight loss. kb 23:04 : Positive for hematuria, burning with urination. 23:04 All other systems are negative. Exam: 23:04 Constitutional: This is a well developed, well nourished patient who is awake, alert, kb and in no acute distress. Head/Face: Normocephalic, atraumatic. ENT: Moist Mucous membranes Respiratory: Respirations even and unlabored. No increased work of breathing. Talking in full sentences Skin: Warm, dry with normal turgor. Normal color. MS/ Extremity: Pulses equal, no cyanosis. Neurovascular intact. Full, normal range of motion. Neuro: Awake and alert, GCS 15, oriented to person, place, time, and situation. Moves all extremities. Normal gait. Psych: Awake, alert, with orientation to person, place and time. Behavior, mood, and affect are within normal limits. Vital Signs: 22:52 BP 112 / 79; Pulse 92; Resp 18; Temp 98.4; Pulse Ox 100% on R/A; Weight 43.54 kg; 5 Height 5 ft. 2 in. (157.48 cm); Pain 0/10; 22:52 Body Mass Index 17.56 (43.54 kg, 157.48 cm) [facility] MDM: 22:47 Patient medically screened. 23:06 Data reviewed: vital signs, nurses notes. Data interpreted: Pulse oximetry: on room air kb is 100 %. Interpretation: normal. Counseling: I had a detailed discussion with the patient and/or guardian regarding: the historical points, exam findings, and any diagnostic results supporting the discharge/admit diagnosis, lab results, the need for outpatient follow up, a family practitioner, to return to the emergency department if symptoms worsen or persist or if there are any questions or concerns that arise at home. 09/23 22:47 Order name: Urine Microscopic Only 09/23 22:48 Order name: Urine Microscopic Only; Complete Time: 23:10 [facility] 09/23 22:47 Order name: Urine Dipstick-Ancillary (obtain specimen); Complete Time: 23:01 09/23 22:59 Order name: Urine Dipstick-Ancillary; Complete Time: 23:03 [facility] 09/23 23:08 Order name: Urine Culture [facility] 09/23 22:47 Order name: Urine Test (obtain specimen); Complete Time: 23:01 Administered Medications: 23:17 Drug: Macrobid (nitrofurantoin) 100 mg Route: PO; 5 Disposition: 09/24 00:44 Co-signature as Attending Physician, Sanjeev Agee MD. pkl Disposition Summary: 09/23/21 23:10 Discharge Ordered Location: Home Condition: Stable kb Diagnosis - UTI/ Urinary tract infection, site not specified kb Followup: kb - With: Emergency Department - When: As needed - Reason: Worsening of condition Followup: kb - With: Private Physician - When: 2 - 3 days - Reason: Recheck today's complaints, Continuance of care, Re-evaluation by your physician Discharge Instructions: - Discharge Summary Sheet kb - Urinary Tract Infection, Adult, [id number] kb Forms: - Medication Reconciliation Form kb - Thank You Letter kb - Antibiotic Education kb - Prescription Opioid Use kb - Work release form sm5 Prescriptions: - Macrobid 100 mg Oral Capsule - take 1 capsule by ORAL route every 12 hours for 10 days; 20 capsule; Refills: kb 0, Product Selection Permitted Signatures: Dispatcher [employer] EDTamie Lei, HIGHBALLER-C Sanjeev Mckeon MD MD pkKatelynn Gallardo, RN RN 5
--- NOTE | 2021-09-23 23:11 | ER ---
Nurse's Notes [facility] Name: Hung Aguiar Age: 21 yrs Sex: Female : 2000 Arrival Date: 09/23/2021 Time: 22:46 Bed Waiting Private MD: Diagnosis: UTI/ Urinary tract infection, site not specified Presentation: 09/23 22:52 Chief complaint: Patient states: blood in urine and painful urination starting today. 5 Coronavirus screen: At this time, the client does not indicate any symptoms associated with coronavirus-19. Ebola Screen: No symptoms or risks identified at this time. Initial Sepsis Screen: Does the patient meet any 2 criteria? No. Patient's initial sepsis screen is negative. Does the patient have a suspected source of infection? No. Patient's initial sepsis screen is negative. Risk Assessment: Do you want to hurt yourself or someone else? Patient reports no desire to harm self or others. Onset of symptoms was September 23, 2021. 22:52 Method Of Arrival: Ambulatory [facility] 22:52 Acuity: NANCY 4 5 Triage Assessment: 22:55 General: Appears in no apparent distress. Behavior is cooperative. Pain: Complains of sm5 pain in painful urination. Neuro: No deficits noted. Level of Consciousness is awake, alert, Oriented to person, place, time, situation. : Reports burning with urination. 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 - Social history:: Smoking status: unknown. Screenin:17 Abuse screen: Denies threats or abuse. Denies injuries from another. Nutritional sm5 screening: No deficits noted. Tuberculosis screening: No symptoms or risk factors identified. Fall Risk None identified. Assessment: 23:17 Reassessment: see triage assessment. 5 Vital Signs: 22:52 BP 112 / 79; Pulse 92; Resp 18; Temp 98.4; Pulse Ox 100% on R/A; Weight 43.54 kg; sm5 Height 5 ft. 2 in. (157.48 cm); Pain 0/10; 22:52 Body Mass Index 17.56 (43.54 kg, 157.48 cm) 5 ED Course: 22:46 Patient arrived in ED. jj6 22:47 Tamie Phipps FNP-C is [facility]. kb 22:47 Sanjeev Agee MD is Attending Physician. kb 22:54 Triage completed. sm5 23:01 Urine Microscopic Only Sent. lt3 23:01 Urine Microscopic Only Sent. lt3 23:17 No provider procedures requiring assistance completed. Patient did not have IV access sm5 during this emergency room visit. 23:17 Arm band placed on right wrist. sm5 23:18 Patient has correct armband on for positive identification. 5 Administered Medications: 23:17 Drug: Macrobid (nitrofurantoin) 100 mg Route: PO; 5 Outcome: 23:10 Discharge ordered by . kb 23:18 Discharged to home ambulatory. sm5 23:18 Condition: good 23:18 Discharge instructions given to patient, Instructed on discharge instructions, follow up and referral plans. medication usage, Demonstrated understanding of instructions, follow-up care, medications, Prescriptions given X 1. 23:18 Patient left the ED. 5 Signatures: Tamie Phipps FNP-C FNP-Ckb Jeffries, Jennifer jj6 Katelynn Jewell, RN RN sm5 Alivia Baron 3
[2021-09-23] MEDS ORDERED: NITROFURAN MACRO 100 MG CAP PO ONE (23:13)
[2021-09-23 23:34] VITALS: BP 112/79; TEMP 98.4; O2SAT 100
== END 2021-09-23 23:18 | disposition home or self-care (01) ==
LOC: ER 22:40
DX: N39.0 Urinary tract infection, site not specified (principal)
CPT/HCPCS: 81003; 81015; 87086; 87088; 99283